=== PATIENT | male | born 1990 | race Two or more races ===

== ENCOUNTER 2025-05-18 22:43 | Emergency (ER) | payer MEDICAID, OTHER ==
[~2025-05-18] VITALS: Ht 190.5 cm; Wt 86.3 kg
--- NOTE | 2025-05-18 23:37 | ED.PDOC ---
History of Present Illness HPI Comments 34 y/o Chinese-speaking M presents with c/c of RUQ abdominal pain. Patient endorses on 1x day history of pain, which radiates to his back, following initial, unprovoked and atraumatic onset. He reports associated nausea and vomiting but denies having any bloody or bilious vomitus, diarrhea, constipation, or further acute symptoms. No recent previous ailments, sick contacts, travel, spoiled or spicy food consumption, or any pertinent medical, surgical, social, or family history. Chief Complaint: Abdominal Pain Time Seen by MD: 23:20 Reviewed Notes: Nurses Notes, Medications, Allergies Allergies: Coded Allergies: NO KNOWN ALLERGIES (Unverified , 05/18/25) Home Meds Active Scripts Naproxen (NAPROSYN TABLET) 500 Mg Tb, 1 TAB PO BID PRN, #60 TAB 1 Refill Prov:JOSEPH MYERS MD 05/19/25 Dicyclomine Hcl (BENTYL CAPSULE) 10 Mg Cp, 1 CAP PO Q6HPRN, #100 CAP 3 Refills Prov:JOSEPH MYERS MD 05/19/25 Information Source: Patient Mode of Arrival: Ambulatory Severity: Moderate Timing: Hours Duration: Since onset Prehospital treatment: None Past Medical History PAST MEDICAL HISTORY: Denies Surgical History: Denies all surgeries Family History Family History: Unknown Social History Smoker: Non-Smoker Alcohol: Denies ETOH Use Drugs: Denies Drug Use Lives In: Home All Other Systems: Reviewed and Negative (As per HPI) Physical Exam General Appearance: No Apparent Distress, Normal HEENT: Normal ENT Inspection, Pharynx Normal, TMs Normal Neck: Full Range of Motion, Non-Tender, Normal, Normal Inspection Respiratory: Chest Non-Tender, Lungs Clear, No Accessory Muscle Use, No Respiratory Distress, Normal Breath Sounds Cardiovascular: No Edema, No JVD, No Murmur, No Gallop, Normal Peripheral Pulses, Regular Rate/Rhythm Breast Exam: Deferred Gastrointestinal: No Organomegaly, No Pulsatile Mass, Normal Bowel Sounds, RUQ (tenderness ), Soft, Tenderness (RUQ) Genitalia: Deferred Pelvic: Deferred Rectal: Deferred Extremities: No calf tenderness, Normal capillary refill, Normal inspection, Normal range of motion, Non-tender, No pedal edema Musculoskeletal : Apperance: Normal Neurologic: Alert, rn acute II-XII nml as Tested, No Motor Deficits, Normal Affect, Normal Mood, No Sensory Deficits Cerebellar Function: Normal Reflexes: Normal Skin: Dry, Normal Color, Warm Lymphatic: No Adenopathy Was a procedure done? Was a procedure done?: No Differential Dx Considerations may include: gastritis, gastroenteritis, GERD, PUD, cholelithiasis, cholecystitis, viral, among others X-Ray, Labs, Meds, VS Vital Signs Date Time Temp Pulse Resp B/P (MAP) Pulse Ox O2 Delivery O2 Flow Rate FiO2 05/19/25 01:24 97.9 77 15 112/76 (88) 97 97.9 05/19/25 01:24 77 15 97 Room Air* 0 21 05/19/25 01:15 97.8 83 18 117/77 (90) 99 97.8 05/18/25 22:51 98.7 77 18 140/105 98 98.7 Lab Test 05/18/25 23:32 Range/Units White Blood Count 7.4 4.4-10.8 10^3/uL Red Blood Count 5.06 4.5-5.90 10^6/uL Hemoglobin 14.9 13.5-17.5 g/dL Hematocrit 42.7 41.0-53.0 % Mean Corpuscular Volume 84.5 80.0-100.0 fL Mean Corpuscular Hemoglobin 29.5 28.0-32.0 pg Mean Corpuscular Hemoglobin Concent 34.9 32.0-36.0 g/dL Red Cell Distribution Width 12.9 11.8-14.3 % Platelet Count 266 140-450 10^3/uL Mean Platelet Volume 7.9 6.9-10.8 fL Neutrophils (%) (Auto) 61.7 37.0-80.0 % Lymphocytes (%) (Auto) 23.1 10.0-50.0 % Monocytes (%) (Auto) 12.8 H 0.0-12.0 % Eosinophils (%) (Auto) 1.8 0.0-7.0 % Basophils (%) (Auto) 0.6 0.0-2.0 % Neutrophils # (Auto) 4.6 1.6-8.6 10 ^3/uL Lymphocytes # (Auto) 1.7 0.4-5.4 10 ^3/uL Monocytes # (Auto) 1.0 0-1.3 10 ^3/uL Eosinophils # (Auto) 0.1 0-0.8 10 ^3/uL Basophils # (Auto) 0 0-0.2 10 ^3/uL Nucleated Red Blood Cells 0.0 % Sodium Level 140 136-145 mmol/L Potassium Level 4.0 3.5-5.1 mmol/L Chloride Level 104 98-107 mmol/L Carbon Dioxide Level 29 20-31 mmol/L Anion Gap 7 5-15 Blood Urea Nitrogen 9 9-23 mg/dL Creatinine 1.07 0.700-1.30 mg/dL Glomerular Filtration Rate Calc 92 >90 mL/min BUN/Creatinine Ratio 8.4 L 10.0-20.0 Serum Glucose 102 74-106 mg/dL Calcium Level 9.1 8.7-10.4 mg/dL Total Bilirubin 0.6 0.2-1.0 mg/dL Aspartate Amino Transferase (AST) 32 13-40 U/L Alanine Aminotransferase (ALT) 41 H 7-40 U/L Alkaline Phosphatase 86 46-116 U/L Total Protein 6.7 5.7-8.2 g/dL Albumin 4.2 3.2-4.8 g/dL Lipase 37 12-53 U/L Current Medications Medications (Trade) Dose Ordered Sig/Frida Route Start Time Stop Time Status Last Admin Ondansetron HCl (Zofran Po) 8 mg ONCE ONCE PO 05/18/25 23:30 05/18/25 23:31 DC 05/19/25 01:44 Acetaminophen/ Hydrocodone Bitart ([place] 10/325MG Tab) 1 tab ONCE ONCE PO 05/18/25 23:30 05/18/25 23:31 DC 05/19/25 01:45 Dicyclomine HCl (Bentyl Capsule) 20 mg ONCE ONCE PO 05/19/25 01:45 05/19/25 01:47 DC 05/19/25 02:00 Time of 1ST Reevaluation: 23:50 Reevaluation 1ST: Unchanged Patient Education/Counseling: Diagnosis, Treatment, Need For Follow Up Family Education/Counseling: No Family Present SEPSIS Sepsis Screen Date sepsis recognized/suspect: May 18, 2025 Time Sepsis recognized/suspect: 2251 Recent Procedure: No On Antibiotic Therapy: No Respiratory Rate >20: No Heart Rate >90: No Temp<36 C (96.8 F) or >38.3 C: No SBP <90 or MAP <65 mmHG: No New Acute Mental Status Change: No Is the patient on CPAP, BIPAP,: No Physician Orders Urinalysis (05/18/25 23:24) Gallbladder (05/18/25 23:24) Vital Signs Date Time Temp Pulse Resp B/P (MAP) Pulse Ox O2 Delivery O2 Flow Rate FiO2 05/19/25 01:24 97.9 77 15 112/76 (88) 97 97.9 05/19/25 01:24 77 15 97 Room Air* 0 21 05/19/25 01:15 97.8 83 18 117/77 (90) 99 97.8 05/18/25 22:51 98.7 77 18 140/105 98 98.7 Laboratory Tests Test 05/18/25 23:32 White Blood Count 7.4 10^3/uL (4.4-10.8) Medications Medications Dose Ordered Sig/Frida Route Start Time Stop Time Status Last Admin Dose Admin Acetaminophen/ Hydrocodone Bitart 1 tab ONCE ONCE PO 05/18/25 23:30 05/18/25 23:31 DC 05/19/25 01:45 Dicyclomine HCl 20 mg ONCE ONCE PO 05/19/25 01:45 05/19/25 01:47 DC 05/19/25 02:00 Ondansetron HCl 8 mg ONCE ONCE PO 05/18/25 23:30 05/18/25 23:31 DC 05/19/25 01:44 Departure 1 Departure Time of Disposition: 01:50 Impression: Primary Impression: Biliary colic Additional Impression: Cholelithiasis Disposition: 01 HOME / SELF CARE / HOMELESS Condition: Stable e-Prescriptions Naproxen (NAPROSYN TABLET) 500 Mg Tb 1 TAB PO BID PRN, #60 TAB 1 Refill Prov: JOSEPH MYERS MD 05/19/25 Dicyclomine Hcl (BENTYL CAPSULE) 10 Mg Cp 1 CAP PO Q6HPRN, #100 CAP 3 Refills Prov: JOSEPH MYERS MD 05/19/25 Discharged With: Self Critical Care Note Critical Care Time?: No Stability Stability form required: No Heart Score Heart Score: Heart Score Response (Comments) Value History N/A 0 EKG N/A 0 Age N/A 0 Risk Factors N/A 0 Troponin N/A 0 Total 0 I personally scribed for JOSEPH MYERS MD ([email or web address]) on 05/18/25 at 23:37. Electronically submitted by Angel Palacios [email or web address]). JOSEPH MYERS MD May 18, 2025 23:37
[2025-05-18 23:45] LABS: Hematocrit 42.7 % (41.0-53.0); Hemoglobin 14.9 g/dL (13.5-17.5); Mean Corpuscular Hemoglobin 29.5 pg (28.0-32.0); Mean Corpuscular Volume 84.5 fL (80.0-100.0); Nucleated Red Blood Cells % 0.0 %
[2025-05-19 00:06] LABS: Alanine Aminotransferase 41 U/L (7-40); Albumin 4.2 g/dL (3.2-4.8); Anion Gap 7 (5-15); BUN/Creatinine Ratio 8.4 (10.0-20.0); Bilirubin, Total 0.6 mg/dL (0.2-1.0); Blood Urea Nitrogen 9 mg/dL (9-23); Calcium 9.1 mg/dL (8.7-10.4); Carbon Dioxide 29 mmol/L (20-31); Chloride 104 mmol/L (98-107); Glucose 102 mg/dL (74-106); Lipase 37 U/L (12-53); Potassium 4.0 mmol/L (3.5-5.1); Sodium 140 mmol/L (136-145); Total Protein 6.7 g/dL (5.7-8.2)
[2025-05-19 00:52] LABS: Alkaline Phosphatase 86 U/L (46-116)
--- NOTE | 2025-05-19 00:57 | DVH ---
INDICATION: RUQ pain TECHNIQUE: Multiple real-time sonographic images were obtained of the right upper quadrant. COMPARISON: None FINDINGS: The liver demonstrates diffusely increased echotexture without focal mass lesions. The liver measures 16.3 cm. Normal hepatopetal portal venous flow identified. No evidence of pleural effusion or abdominal ascites. There is no intrahepatic or extrahepatic ductal dilatation. The common duct was not visualized. Mobile gallstones and sludge within the gallbladder. The gallbladder wall measures 0.2 cm and is within normal limits. Negative sonographic joe's sign. The right kidney measures 10.6 cm. The right kidney is normal in contour, size, and shape. The echogenicity is normal. There is no hydronephrosis. The pancreas is not well visualized due to overlying bowel gas. IMPRESSION: 1. Cholelithiasis and gallbladder sludge without sonographic evidence of acute cholecystitis. 2. Hepatic steatosis.
[2025-05-19 01:24] VITALS: BP 112/76; PULSE 77; RESP 15; TEMP 97.9; O2SAT 97
[2025-05-19] MEDS: ONDANSETRON ODT 4 MG TAB PO ONE (01:44)
[2025-05-19] MEDS: HYDROcodone-ACET 10/325MG TAB PO ONE (01:45)
[2025-05-19] MEDS ORDERED: NAP500T PO (01:45)
[2025-05-19] MEDS ORDERED: DICY10CA PO (01:45)
[2025-05-19] MEDS: DICYCLOMINE HCL 10 MG CAP PO ONE (02:00)
== END 2025-05-19 02:06 | disposition home or self-care (01) ==
LOC: ER 22:43
DX: K80.51 Calculus of bile duct without cholangitis or cholecystitis with obstruction (principal); K80.70 Calculus of gallbladder and bile duct without cholecystitis without obstruction; Z79.899 Other long term (current) drug therapy
CPT/HCPCS: 36415; 76705; 80053; 83690; 85025; 99284; J0500; Q0162

== ENCOUNTER 2025-06-01 23:27 | Emergency (ER) | payer MEDICAID ==
[~2025-06-01] VITALS: Ht 175.3 cm; Wt 85.2 kg
[~2025-06-01 23:27] MED LIST: DICY10CA PO; NAP500T PO
[2025-06-01 23:30] VITALS: BP 110/95; PULSE 82; RESP 24; TEMP 98.2; O2SAT 98
== END 2025-06-02 01:02 | disposition left against medical advice (07) ==
LOC: ER 23:27
DX: R10.9 Unspecified abdominal pain (principal); Z79.899 Other long term (current) drug therapy